=== PATIENT | male | born 1955 | race Caucasian/White ===

== ENCOUNTER 2021-02-01 15:57 | Outpatient (CLI) | payer OTHER ==
[2021-02-01] MEDS ORDERED: LANS15CA5 PO (16:50)
[2021-02-01] MEDS ORDERED: Vitamin D3 PO (16:50)
[2021-02-01] MEDS ORDERED: ACET-1600 PO (16:50)
[2021-02-01] MEDS ORDERED: Testosterone IM (16:50)
[2021-02-01] MEDS ORDERED: IRBE150T9 PO (16:50)
[2021-02-01] MEDS ORDERED: ANAS1TAB49 PO (16:50)
[2021-02-01] MEDS ORDERED: CIPR500T87 PO (16:50)
[2021-02-01] MEDS ORDERED: UBID100C24 PO (16:50)
[2021-02-01] MEDS ORDERED: CETI-158 PO (16:50)
== END 2021-02-01 23:59 | disposition home or self-care (01) ==
LOC: STAR 15:57
PROVIDERS: ATTEND Neurological Surgery
DX: Z01.812 Encounter for preprocedural laboratory examination (principal); Z20.822 Contact with and (suspected) exposure to COVID-19; M43.16 Spondylolisthesis, lumbar region
CPT/HCPCS: 71046; U0003